=== PATIENT | female | born 1990 | race Caucasian/White ===

== ENCOUNTER 2022-06-26 14:52 | Emergency (ER) | payer OTHER, SELFPAY ==
[2022-06-26 14:58] VITALS: BP 102/73; PULSE 98; RESP 16; TEMP 37.1; O2SAT 100
--- NOTE | 2022-06-26 15:04 | ED.URI ---
HPI - URI/Sore Throat General Stated Complaint: fever/throat History of Present Illness HPI Narrative: Patient presents with a sore throat on and off but has resolved today. Patient states she has seasonal allergies but has no trouble swallowing no drooling and is not taking anything [id number] for her symptoms. Related Data Home Medications Medication Instructions Recorded Confirmed No Home Medications 06/26/22 06/26/22 Allergies Allergy/AdvReac Type Severity Reaction Status Date / Time No Known Allergies Allergy Unknown Verified 06/16/08 10:04 Review of Systems Review of Systems: CONSTITUTIONAL: Denies fever, chills, or sweats. EYES: Denies visual changes, redness, or discharge. ENT: Denies rhinorrhea, congestion, sore throat, or otalgia. CARDIOVASCULAR: Denies chest pain, palpitations, or edema. RESPIRATORY: Denies cough or dyspnea. GASTROINTESTINAL: Denies abdominal pain, nausea, vomiting, or diarrhea. GENITOURINARY: Denies dysuria or hematuria. SKIN: Denies rash or itching. MUSCULOSKELETAL: Denies back pain, joint pain, or myalgia. NEUROLOGIC: Denies headache, numbness, or weakness. PSYCHIATRIC: Denies anxiety or depression. PMFSH Comments At time of signature, agree with nursing past medical, surgical, social and family history. There is no relevant family history pertinent to the presenting complaint Exam Narrative: GENERAL: Well-appearing, well-nourished, and in no acute distress. HEAD: Normocephalic, atraumatic. EYES: PERRLA and EOMI. ENT: Nares clear, no rhinorrhea or epistaxis. Mucous membranes moist. NECK: Supple. CHEST: Clear to auscultation. No respiratory distress. HEART: Regular rate and rhythm. No murmur heard. Normal peripheral pulses. ABDOMEN: Soft, nontender, nondistended, normal active bowel sounds. EXTREMITIES: Normal range of motion. No edema. SKIN: Warm, dry, no rash. NEURO: No focal deficits. Alert and oriented x3. Ze Coma Scale Eye Opening: Spontaneous 4 Ze Coma Scale Motor: Obeys Commands 6 [place] Coma Scale Verbal: Oriented 5 [place] Coma Scale Total 15 Course Course Level of Care: Express Care Visit Discharge Plan Discharge Clinical Impression: Upper respiratory infection, Post-nasal drainage Patient Disposition: Home, Self-Care Condition: Stable Instructions: Postnasal Drip (DC) Additional Instructions: congestion - flonase am and pm for chronic sinus congestion or prolonged symptoms of sinusitis (takes several days to work). one to three times a day of irrigation of sinus with saline spray, ocean nasal spray or flaquito pot. fluids. if you don't have hypertension-afrin nasal spray with a 3 day limit for immediate relief of sinus congestion. for runny nose: do over the counter antihistamine (claritin, benadryl, zyrtec) for sneezing, runny nose. allergies. sudafed or decongestant can also be used, unless you have elevated blood pressure, nursing or . pineapple juice to help thin mucus pain and discomfort: over the counter treatment for pain - tylenol - with a max of 3 grams a day, not to take more than 3-4 days at this dose. discussed aleve - 1-2 am and pm with food. also not to take more than a few days if not improving. patient understands not to take ibuprofen or aleve without food. patient understands ibuprofen max is 4 pills 3 times a day, also not to take this amount for more than a few days if not improving. rest. -If you have any worsening of symptoms or any other concerns please go to the ED immediately. throat pain- gargling with salt water, throat losengers or chloraseptic spray may help with throat pain. if older than 2 years, cough- can try honey for cough if older than one year. mucinex, nyquil, dayquil, robitussin and other otc cold/cough medications can all be used in teenagers and adults with caution. do not mix or use multiple therapies without discussing with your do
== END 2022-06-26 15:20 | disposition home or self-care (01) ==
PROVIDERS: Emergency Provider Nurse Practitioner Family
DX: J06.9 Acute upper respiratory infection, unspecified (principal); R09.82 Postnasal drip
CPT/HCPCS: 99202; 99203; G0463

== ENCOUNTER 2024-08-24 18:37 | Emergency (ER) | payer OTHER, SELFPAY ==
[2024-08-24 18:42] VITALS: BP 125/93; PULSE 86; RESP 18; TEMP 36.4; O2SAT 100
--- NOTE | 2024-08-24 18:48 | ED_ITS ---
HPI - Fall General Chief Complaint: Skin/Abscess/Foreign Body Stated Complaint: face injury Time Seen by Provider: 08/24/24 18:46 Mode of arrival: ambulatory Limitations: no limitations History of Present Illness HPI Narrative: 34-year-old female presents with concern for swelling under her left eyelid after a fall 4 days ago. She reports she fell into a screen door hitting her forehead on Tuesday. She reports she had some mild bruising and swelling on her forehead at that time. She reports minimal pain. She reports occasional headache. She reports over the last several days the swelling has gone from her forehead to her lower eyelid. She reports mild bruising around the eye that has not changed. She denies any eye pain, vision changes, drainage from the eye. Denies nausea, vomiting, loss of consciousness. MD complaint: fall Related Data Home Medications ?Medication ?Instructions ?Recorded ?Confirmed ?Last Taken ?Type No Home Medications 06/26/22 08/24/24 Unknown History Allergies Allergy/AdvReac Type Severity Reaction Status Date / Time No Known Allergies Allergy Unknown Verified 08/24/24 18:48 Review of Systems Review of Systems: CONSTITUTIONAL: Denies malaise, chills, sweats, or fever. EYES: Denies visual changes, redness, eye pain, or discharge. Reports left lower eyelid swelling SKIN: Reports mild bruise near her left eyebrow MUSCULOSKELETAL: Denies muscle skeletal pain NEUROLOGIC: Denies numbness, weakness. Reports occasion mild headache. All systems reviewed & are unremarkable except as noted in HPI and below PMFSH Comments At time of signature, agree with nursing past medical, surgical, social and family history. There is no relevant family history pertinent to the presenting complaint Exam Narrative: GENERAL: Well-appearing, well-nourished, and in no acute distress. HEAD: Normocephalic, atraumatic. EYES: PERRLA, sclera clear, and EOMI. No nystagmus. Very mild left lower eyelid superficial swelling ENT: Nares clear, no rhinorrhea or epistaxis. Mucous membranes moist. TM pearly swanson with sharp light reflex bilaterally; no tragal tenderness. Oropharynx without erythema or lesions. Tonsils not enlarged and without exudate. NECK: Supple. CHEST: No respiratory distress. Speaks in full sentences. HEART: Regular rate and rhythm. SKIN: Warm, dry, no open skin. Yellow colored bruise noted lateral to the left eyebrow NEURO: Alert and oriented x3. No focal deficits. Cranial nerves II through XII grossly intact PSYCH: Normal mood and affect Course Course Emergency Course: Patient is aware of diagnosis, understands and agrees to treatment plan. Anticipatory guidance given. Patient agrees to follow-up as directed and is aware of reasons to seek care at the emergency department. Portions of this record may have been created with voice recognition software Level of Care: Express Care Visit Vital Signs Vital signs: Vital Signs Temperature 97.6 F 08/24/24 18:42 Pulse Rate 86 08/24/24 18:42 Respiratory Rate 18 08/24/24 18:42 Blood Pressure 125/93 H 08/24/24 18:42 Pulse Oximetry 100 08/24/24 18:42 Oxygen Delivery Room Air 08/24/24 18:42 Temperature 97.6 F 08/24/24 18:42 Pulse Rate 86 08/24/24 18:42 Respiratory Rate 18 08/24/24 18:42 Blood Pressure 125/93 H 08/24/24 18:42 Pulse Oximetry 100 08/24/24 18:42 Oxygen Delivery Room Air 08/24/24 18:42 Reviewed. MDM - Fall MDM Narrative Medical decision making narrative: I evaluated this patient in the [facility]. History is obtained from patient who is an independent historian and physical exam was performed.? Available medical records were reviewed. ? Exam findings testing show no acute concerns or changes; patient is non-toxic appearing and is in no distress. ? Differential diagnosis and treatment plan were discussed with the patient. Patient agrees with discussion and after shared medical decision making agrees with plan of care. All questions were answered to the patient's satisfaction. Patient is appropriate for outpatient treatment and follow-up. Critical Care Time Critical Care Time Critical Care Time: No Discharge Plan Discharge Clinical Impression: Swelling of left lower eyelid Patient Disposition: Home Condition: Stable Instructions: General Patient Instructions Additional Instructions: Apply ice to your eyelid for swelling. You can take Tylenol as needed for pain. Please follow-up with your doctor for further evaluation. If you have any urgent concerns please go to the emergency room. Patient Language: Romanian Prescriptions: No Action No Home Medications Follow-up/Referrals: PHYSICIAN,C [employer]EL[employer] [Primary Care Provider] - Time of Disposition: 18:53
== END 2024-08-24 18:56 | disposition home or self-care (01) ==
PROVIDERS: Emergency Provider Nurse Practitioner
DX: H02.845 Edema of left lower eyelid (principal)
CPT/HCPCS: 99212; G0463